=== PATIENT | male | born 1990 | race Caucasian/White ===

== ENCOUNTER 2021-08-15 05:19 | Emergency (ER) | payer OTHER ==
[~2021-08-15] VITALS: Ht 175.3 cm; Wt 99.8 kg
[2021-08-15] MEDS ORDERED: Cefazolin 1 GM in SODIUM CHLORIDE 0.9% 50ML 50 ML IV ONE (06:30)
[2021-08-15] MEDS ORDERED: Cefazolin 1 GM in SODIUM CHLORIDE 0.9% 50ML 50 ML IM ONE (06:45)
== END 2021-08-15 06:55 | disposition home or self-care (01) ==
LOC: ER 05:25
DX: S60.222A Contusion of left hand, initial encounter (principal); W21.89XA Striking against or struck by other sports equipment, initial encounter; Y93.53 Activity, golf; Y92.39 Other specified sports and athletic area as the place of occurrence of the external cause
CPT/HCPCS: 29125; 73130; 99283; J0690